=== PATIENT | female | born 1950 | race Caucasian/White ===

== ENCOUNTER 2017-04-25 16:24 | Emergency (ER) | payer MEDICARE | END 2017-04-25 18:02 | disposition home or self-care (01) | LOC: EDH 16:24 | DX: S52.591A Other fractures of lower end of right radius, initial encounter for closed fracture (principal); S52.692A Other fracture of lower end of left ulna, initial encounter for closed fracture; E07.9 Disorder of thyroid, unspecified; Z88.2 Allergy status to sulfonamides; Z98.890 Other specified postprocedural states; X58.XXXA Exposure to other specified factors, initial encounter; Y93.89 Activity, other specified; Y92.89 Other specified places as the place of occurrence of the external cause; Y99.8 Other external cause status | CPT/HCPCS: 29125 ==

== ENCOUNTER → 2017-04-25 | Outpatient (CLI) | payer MEDICARE | END | disposition home or self-care (01) | LOC: RAH 15:40 | PROVIDERS: ATTEND Physician Assistant Medical | DX: S52.612A Displaced fracture of left ulna styloid process, initial encounter for closed fracture (principal); S52.512A Displaced fracture of left radial styloid process, initial encounter for closed fracture; M18.12 Unilateral primary osteoarthritis of first carpometacarpal joint, left hand; M79.89 Other specified soft tissue disorders; X58.XXXA Exposure to other specified factors, initial encounter; Y93.89 Activity, other specified; Y92.89 Other specified places as the place of occurrence of the external cause; Y99.8 Other external cause status | CPT/HCPCS: 73110 ==